=== PATIENT | female | born 1950 | race Two or more races ===

== ENCOUNTER 2019-09-06 16:49 | Inpatient (IN) | payer OTHER ==
[~2019-09-06] VITALS: Ht 157.5 cm; Wt 72.1 kg
[2019-09-12] MEDS ORDERED: NORFLEX PO (09:20)
[2019-09-12] MEDS ORDERED: KETO10TA2 PO (09:20)
[2019-09-12] MEDS ORDERED: FLEXERIL PO (09:21)
[2019-09-19] MEDS ORDERED: ORPHENADRI30 MG/1 M1 (09:27)
[2019-09-19] MEDS ORDERED: CYCLOBENZAPRINE10 MG (09:29)
[2019-09-19] MEDS ORDERED: NABUMETONE750 MG (09:30)
== END 2019-09-19 16:50 | disposition home or self-care (01) | DRG 554 ==
LOC: O/R 09-19 06:39 → SURG 09-19 07:15 → O/R 09-19 13:46
PROVIDERS: ADMIT Orthopaedic Surgery
DX: M16.11 Unilateral primary osteoarthritis, right hip (principal); T88.4XXA Failed or difficult intubation, initial encounter; Z53.8 Procedure and treatment not carried out for other reasons

== ENCOUNTER 2019-10-10 14:24 | Outpatient (CLI) | payer OTHER ==
[~2019-10-10 14:24] MED LIST: CYCLOBENZAPRINE10 MG; FLEXERIL PO; KETO10TA2 PO; NABUMETONE750 MG; NORFLEX PO; ORPHENADRI30 MG/1 M1
== END 2019-10-10 14:51 | disposition home or self-care (01) ==
LOC: NUCLEAR 14:24
DX: M81.0 Age-related osteoporosis without current pathological fracture (principal)